=== PATIENT | female | born 1970 | race Caucasian/White ===

== ENCOUNTER 2017-12-04 09:30 | Outpatient (RCR) | payer OTHER, SELFPAY ==
--- NOTE | 2017-11-24 09:49 | HMH.PTOPEV ---
PT Outpatient Evaluation Rehab PT Outpatient Evaluation Start: 11/24/17 08:35 Freq: Status: Active Protocol: Document 11/24/17 08:35 RADHA (Rec: 11/24/17 08:55 RADHA [id number]) Electronically Signed By Angel Figueroa, PT 11/24/17 08:35 Outpatient Therapy Subjective History Subjective History Pt reports insidious onset LBP beginning ~2 months ago. Pt reports chronic LBP, with this current episode effecting R and L sides with radicular s/s into B LE's. Pt reports recent xray of lumbar spine was negative. Chief Complaint Pain Stiff Symptom Type Ache Sharp Dull Symptoms Relieved By Rest/Positioning Heat Symptoms Aggravated By Physical Activity Twisting Lifting Prior Functional Limitations Lifting Housework Current Functional Limitations Lifting Housework Symptom Description Constant but Variable Level of pain today (0-10) 8 Pain scale - at its best (0-10) 8 Pain scale - at its worst (0-10) 10 Lumbopelvic Eval Posture Thoracic Spine Posture Standing Position Neutral Lumbar Spine Posture Standing Position Neutral Assistive device Assistive Devices None / NA Gait Observation General Gait Pattern Observation Antalgic Gait Palapation tenderness bilateral lumbar spinal tenderness Yes: 3/4 paraspinal tenderness Yes: 3/4 buttock tenderness Yes: 3/4 Lumbar/Sacral Palpation Findings Tenderness Lumbar/Sacral Palpation Overall Comment 3/4 Accessory Movement T-spine Vertebrae Accessory Movements Central P/A [place] that Elicit Symptoms T10 bilateral T11 bilateral T12 bilateral L-spine Vertebrae Accessory Movements Central P/A [place] that Elicit Symptoms L2 bilateral L3 bilateral L4 bilateral L5 bilateral S1 bilateral Range of Motion Lumbar Spine Active Flexion Range of 0-40 Motion (degrees) Lumbar Spine Active Extension Range of 0-20 Motion (degrees) Left Lumbar Spine Lateral Flexion Active 0-20 Range of Motion (degrees) Right Lumbar Spine Lateral Flexion 0-20 Active Range of Motion (degrees)
== END 2017-12-04 09:31 | disposition home or self-care (01) ==
LOC: PT 09:30
PROVIDERS: Family Provider Emergency Medicine; PCP Emergency Medicine; Visit Provider Emergency Medicine
DX: M54.5 Low back pain (principal)
CPT/HCPCS: 97010; 97014; 97035; 97110; 97163; G0283

== ENCOUNTER 2018-05-03 16:56 | Inpatient (IN) ==
[2018-05-03 17:30] LABS: Microscopic, Urine URINE MICROSCOPIC (MICROSCOPIC)
[2018-05-03 17:31] LABS: Basophils % 0.3 % (0.1-2.0); Eosinophils # 0.1 K/mm3 (0.0-0.4); Eosinophils % 1.3 % (0.1-12.0); Hematocrit 34.7 % (37.0-47.0); Lymphocytes # 0.7 K/mm3 (0.7-4.5); Lymphocytes % 11.3 % (10-50); Mean Corpuscular HGB Conc 31.8 g/dL (31.8-35.4); Mean Corpuscular Hemoglobin 31.9 pg (27.0-31.2); Mean Corpuscular Volume 100.4 fl (81-99); Mean Platelet Volume 6.6 fl (7.4-10.4); Monocytes % 14.7 % (1.7-9.3); Neutrophils # 4.7 K/mm3 (1.8-7.8); Neutrophils % 72.5 % (37.0-80.0); Platelet Count 407 K/mm3 (142-424); Red Blood Count 3.46 M/mm3 (4.20-5.40); Red Cell Distribution Width 13.9 % (11.5-17.5); White Blood Count 6.5 K/mm3 (4.8-10.8)
[2018-05-03 17:33] LABS: Appearance,Urine CLEAR (Clear); Bilirubin,Urine Negative (Negative); Blood, Urine TRACE-L (Negative); Color,Urine YELLOW (Yellow); Glucose,Urine (UA) Negative (Negative); Ketones,Urine Negative (Negative); Leukocyte Esterase,Urine Negative (Negative); PH,Urine 6.5 (5.0-8.5); Protein,Urine Negative (Negative); Specific Gravity, Urine <= 1.005 (1.005-1.030); Urobilinogen,Urine 0.2 EU/dl (0.2)
[2018-05-03 17:38] LABS: Albumin Level 1.7 gm/dL (3.4-5.0); Albumin/Globulin Ratio 0.4 (1.1-1.8); Anion Gap 14.4 mEq/L (5-15); Bilirubin,Total 0.3 mg/dL (0.2-1.0); Calcium 7.5 mg/dL (8.5-10.1); Potassium 3.4 mmoL/L (3.5-5.1); Total Protein,Serum 5.7 gm/dL (6.4-8.2); Valproic Acid, (Depakene) 87.4 ug/mL (50-100)
[2018-05-03 17:41] LABS: Bacteria,Urine Trace /lpf; Squamous Epithelial Cell,Urine Occasional #/hpf (0-5); WBC,Urine Occasional #/hpf (0-3)
--- NOTE | 2018-05-03 18:52 | Emergency Department Note ---
ED Disposition Clinical Impression: Colitis, Obesity (BMI 30-39.9), Renal insufficiency Schizophrenia Qualifiers: Schizophrenia type: unspecified Qualified Code(s): F20.9 - Schizophrenia, unspecified Hyperlipidemia Qualifiers: Hyperlipidemia type: unspecified Qualified Code(s): E78.5 - Hyperlipidemia, unspecified Anemia Qualifiers: Anemia type: unspecified type Qualified Code(s): D64.9 - Anemia, unspecified Disposition: Admitted as Observation Condition on Discharge: Good Instructions: DI for Acute Abdomen Referrals: Provider,Referral, [Primary Care Provider] - - Critical Care Critical Care Time: No Attestation: On 05/03/18, the high probability of a clinically significant, sudden or life threatening deterioration of the following system(s) required my full and direct attention, intervention and personal management. The time I documented below is in addition to time spent performing reported procedures but includes the following listed in this critical care notation. Medical Decision Making - Medical Records Medical records reviewed: Yes: I reviewed the patient's medical records. - Edgar Inquiry Pt receiving controlled substance: No Vital Signs: 05/03/18 16:57 05/03/18 17:23 05/03/18 18:42 Temperature 100 F H Temperature Source Oral Pulse Rate [Left Radial] 83 89 88 Respiratory Rate 18 16 Blood Pressure [Right Radial Artery] 132/78 133/80 132/78 Blood Pressure Mean [Right Radial Artery] 96 97 96 Blood Pressure Source [Right Radial Artery] Automatic Cuff Automatic Cuff Automatic Cuff Blood Pressure Position [Right Radial Artery] Sitting Sitting Sitting 02 Sat by Pulse Oximetry 97 93 L 98 Oxygen Delivery Method Room Air Room Air - Lab Data Lab results reviewed: Yes: I reviewed the patient's lab results. Lab Results 05/03/18 17:16: WBC 6.5, RBC 3.46 L, Hgb 11.0 L, Hct 34.7 L, MCV 100.4 H, MCH 31.9 H, MCHC 31.8, RDW 13.9, Plt Count 407, MPV 6.6 L, Neut % (Auto) 72.5, Lymph % (Auto) 11.3, [place] % (Auto) 14.7 H, Eos % (Auto) 1.3, Baso % (Auto) 0.3, Neut # (Auto) 4.7, Lymph # (Auto) 0.7, [place] # (Auto) 1.0, Eos # (Auto) 0.1, Baso # (Auto) 0.0 05/03/18 17:16: Sodium 139, Potassium 3.4 L, Chloride 102, Carbon Dioxide 26, Anion Gap 14.4, BUN 10, Creatinine 1.39 H, Estimated Creat Clear 78, Estimated GFR 40 L, Est GFR ( Amer) 49 L, Glucose 155 H, Calcium 7.5 L, Total Bilirubin 0.3, AST 15, ALT 21, Alkaline Phosphatase 146 H, Total Protein 5.7 L, Albumin 1.7 L, Globulin 4.0 H, Albumin/Globulin Ratio 0.4 L, Amylase 9 L, Total Valproic Acid 87.4 05/03/18 17:16: Lipase 37 L 05/03/18 17:16: ESR 17 05/03/18 17:16: C-Reactive Protein 21.2 H 05/03/18 17:25: Urine Color Yellow, Urine Appearance Clear, Urine pH 6.5, Ur Specific [place] <= 1.005, Urine Protein Negative, Urine Glucose (UA) Negative, Urine Ketones Negative, Urine Blood Trace-l, Urine Nitrate Negative, Urine Bilirubin Negative, Urine Urobilinogen 0.2, Ur Leukocyte Esterase Negative, Urine WBC Occasional, Ur Squamous Epith Cells Occasional, Urine Bacteria Trace Result diagrams: 05/03/18 17:16 05/03/18 17:16 Orders (Tests/Meds): ED MEDICATIONS Generic Name Dose Route Start Last Admin Trade Name Freq PRN Reason Stop Dose Admin Sodium Chloride 10 ml 05/03/18 17:18 Saline Flush 10ml Syringe IV 06/02/18 17:17 NEEDED PRN Maintain IV Site Discontinued Medications Generic Name Dose Route Start Last Admin Trade Name Freq PRN Reason Stop Dose Admin Sodium Chloride 10 ml 05/03/18 17:49 05/03/18 17:50 Rad-Saline Flush 10ml Syringe IV 05/03/18 17:50 10 ml ONCE ONE Administration ORDERS Category Date Time Status CT abdomen pelvis w con Stat Cat Scan 05/03/18 17:04 Taken CXR 2 view (NOT portable) [XR chest 2V] Stat Exams 05/03/18 18:51 Taken Urinalysis and Microscopic Stat Lab 05/03/18 17:25 Ordered - Radiology Data #1 Image(s): Chest Image Reviewed: Yes I reviewed the patient's radiology image Preliminary Findings: Normal/NAD - CT Data CT Scan: Abdomen, Pelvis Time Received: 20:[address] Reviewed: Yes: I have viewed the radiologist's interpretation Preliminary Findings: Abnormal (see report) Nausea/Vomiting/Diarrhea HPI - General Chief complaint: Abdominal Pain Stated complaint: abd pain Time Seen by Provider: 05/03/18 18:50 Mode of Arrival: EMS Source of Information: Patient, EMS, Medical Record Limitations: No Limitations Description of Symptoms (Recalled from ER Triage Doc. by RN): to ed per squad with c/o lower abd pain x 1 week. +nausea, +vomiting, denies diarrhea. cpta none - History of Present Illness HPI Narrative: progressive abd pain with dec po intake over the last few days - MD complaint: nausea, vomiting, abdominal pain Onset (ago): day(s) Associated Abdominal Pain: Yes Location of pain: diffuse Severity: moderate Associated symptoms: denies other symptoms - Related Data Home Medications Medication Instructions Recorded Confirmed Atorvastatin Calcium [Atorvastatin 10 mg PO HS 05/03/18 05/03/18 10mg Tab] Benztropine Mesylate 0.5 mg PO BID 05/03/18 05/03/18 Divalproex Sodium [Depakote] 500 mg PO BID 05/03/18 05/03/18 Famotidine [Pepcid 20mg Tablet] 20 mg PO DAILY 05/03/18 05/03/18 Fluoxetine HCl 40 mg PO DAILY 05/03/18 05/03/18 Gabapentin 600 mg PO TID 05/03/18 05/03/18 Hydrocodone/Acetaminophen 1 each PO Q4HP PRN 05/03/18 05/03/18 [Hydrocodon-Acetaminoph 7.5-325] Ibuprofen [Ibuprofen 600mg 600 mg PO NEEDED PRN 05/03/18 05/03/18 Tablet] LORazepam [Ativan 0.5mg 0.5 mg PO NEEDED PRN 05/03/18 05/03/18 tablet] Mag Hydrox/Aluminum Hyd/Simeth 200 ml PO TID 05/03/18 05/03/18 [Wendi-Lanta Liquid] Metoprolol Tartrate [Lopressor 25 mg PO BID 05/03/18 05/03/18 25mg tablet] Perphenazine 8 mg PO BID 05/03/18 05/03/18 risperiDONE [Risperdal 1mg Tablet] 1 mg PO BID 05/03/18 05/03/18 Allergies Allergy/AdvReac Type Severity Reaction Status Date / Time aspirin [ASPIRIN] Allergy Mild Verified 05/03/18 18:20 [facility] History - Hepatitis A Screen Drug use history?: No High risk sexual behaviors?: No History of sexually transmitted infection?: No Currently employed?: No Childcare worker?: No Do you have indoor plumbing?: Yes Do you have electricity?: Yes Attestation statement:: This patient has been screened for Hepatitis A risk factors. I have reviewed the patient's past medical history: Yes Medical History: Denies:: Internal Pacemaker Other Surgeries: No: Pacemaker - Social History Smoking Status: Current every day smoker # Packs/Day (cigarettes): 1 Alcohol Intake: never Occupational Status: disabled - Psychiatric History Expresses thoughts of harming self/others: None Suicide Plan Description: No Plan ROS Obtained: Yes All systems reviewed & no additional complaints - Constitutional Constitutional: Denies fever(s), Reports frequent falls - Eyes Eyes: Denies change in vision ( ) - ENT Ears, Nose, Mouth, and Throat: Denies sore throat - Cardiovascular Cardiovascular: Denies chest pain - Respiratory Respiratory: No cough - Gastrointestinal Gastrointestingal: Reports: as per HPI, abdominal pain, nausea, vomiting. Denies: bright red blood in stools - Genitourinary Female Genitourinary: Denies dysuria, Denies hematuria - Musculoskeletal Musculoskeletal: Denies limited range of motion - Integumentary/Breasts Skin/Breast: Denies rash - Neurologic Neurologic: Denies seizure-like activity Physical Exam - General General appearance: alert, obese - Head Head exam: normocephalic - Eye Eye exam: Present: PERRL, EOMI - ENT ENT exam: Present: mucous membranes dry - Neck Neck exam: Present: trachea midline - Respiratory Respiratory exam: Present: normal lung sounds bilaterally - Cardiovascular Cardiovascular exam: Present: regular rate, systolic murmur - Abdominal Exam Abdominal exam: Present: soft, tenderness Abdominal tenderness: Present: diffuse, moderate - Extremities Exam Extremities exam: Present: full ROM - Neurological Exam Neurological exam: Present: alert, CN II-XII intact - Psychiatric Psychiatric exam: Present: normal affect - Skin Skin exam: Absent: rash
--- NOTE | 2018-05-03 20:47 | Pharmacy Consult Notes ---
[facility] Pharmacy VTE Monitoring - Patient Demographics Admission date: 05/03/18 Report Date: 05/03/18 Time: 20:47 Allergies/Adverse Reactions: Patient Allergies aspirin [ASPIRIN] Allergy (Mild, Verified 05/03/18 18:20) Height: 1.65 m Weight: 99.79 kg Patient Problems: Current Active Problems Colitis (Acute) Obesity (BMI 30-39.9) (Acute) Schizophrenia (Acute) Hyperlipidemia (Acute) Anemia (Acute) Renal insufficiency (Acute) - VTE Risk Labs: VTE Related Lab Results Hgb 11.0 g/dL (12.2-16.2) L 05/03/18 17:16 Hct 34.7 % (37.0-47.0) L 05/03/18 17:16 Plt Count 407 K/mm3 (142-424) 05/03/18 17:16 BUN 10 mg/dL (7-18) 05/03/18 17:16 Creatinine 1.39 mg/dL (0.55-1.02) H 05/03/18 17:16 Estimated Creat Clear 78 mL/min (50-200) 05/03/18 17:16 Clinical Trial Participant: No - Prophylaxis VTE Prophylaxis Ordered?: Yes Types of VTE Prophylaxis: TEDS Knee High
[2018-05-04 06:12] LABS: Basophils % 0.1 % (0.1-2.0); Eosinophils % 0.3 % (0.1-12.0); Hematocrit 35.2 % (37.0-47.0); Hemoglobin 11.1 g/dL (12.2-16.2); Lymphocytes # 0.6 K/mm3 (0.7-4.5); Mean Corpuscular HGB Conc 31.7 g/dL (31.8-35.4); Mean Corpuscular Volume 100.9 fl (81-99); Mean Platelet Volume 6.7 fl (7.4-10.4); Monocytes # 0.3 K/mm3 (0.1-1.0); Monocytes % 5.6 % (1.7-9.3); Neutrophils # 5.2 K/mm3 (1.8-7.8); Platelet Count 395 K/mm3 (142-424); Red Blood Count 3.48 M/mm3 (4.20-5.40); Red Cell Distribution Width 13.7 % (11.5-17.5); White Blood Count 6.2 K/mm3 (4.8-10.8)
[2018-05-04 06:29] LABS: Anion Gap 11.8 mEq/L (5-15); Calcium 7.5 mg/dL (8.5-10.1); Potassium 3.8 mmoL/L (3.5-5.1)
[2018-05-04 07:35] LABS: Lymphocytes % 7 % (10-50); Monocytes % 6 % (2-9); Neutrophils % 87 % (42-76); Total Cells Counted 100
--- NOTE | 2018-05-04 09:05 | History & Physical Report ---
*Admission Date: 05/03/18 *Chief complaint: abd pain *History of present illness: 47-year-old female presents to the ED with complaints of nausea, vomiting and diarrhea times 1 week. Patient reports a history of smoking. Patient admitted for IV fluids. Chest x-ray abnormal repeat with CT of, with contrast. Today patient states she feels better asking for something to eat or drink. [facility] History I have reviewed the patient's past medical history: Yes Medical History: Denies:: Cancer, Diabetes Mellitus Type 1, Diabetes Mellitus Type 2, Internal Pacemaker, MRSA Have you ever received a pneumonia vaccine?: No (STATES UNSURE) Have you received a flu vaccine this season?: Yes Other Surgeries: Yes: Hysterectomy-Total. No: Pacemaker Amputation: No Fractures: No - *Social History Educational Level: Attended High School Smoking Status: Current every day smoker Tobacco Type: cigarettes # Packs/Day (cigarettes): 1 Alcohol Intake: never Occupational Status: disabled Housing: assisted living facility Travel in the last 8 weeks: None - Psychiatric History Expresses thoughts of harming self/others: None Suicide Plan Description: No Plan Family Hx:: Unable to obtain Review of Systems - Review of Systems Review of systems:: pertinent systems reviewed and negative unless documented below - Constitutional Denies body ache(s), Denies fever(s) - Eyes Denies blurry vision - ENT Denies bleeding gums - *Cardiovascular Denies chest pain with activity - *Respiratory Denies chest congestion - *Gastrointestinal Reports loose stools, Reports nausea, Reports vomiting - *Genitourinary Denies urinary urgency - *Musculoskeletal Denies neck pain - Integumentary/Breasts Denies rash - *Neurologic Reports frequent falls, Denies seizure-like activity - Psychiatric Denies lack of enjoyment - Endocrine Denies flushing - Hematologic/Lymphatic Denies enlarged lymph nodes - Allergic/Immunologic Denies lip swelling Meds Home Medications Medication Instructions Recorded Confirmed Type Atorvastatin Calcium [Atorvastatin 10 mg PO HS 05/03/18 05/03/18 History 10mg Tab] Benztropine Mesylate 0.5 mg PO BID 05/03/18 05/03/18 History Divalproex Sodium [Depakote] 500 mg PO BID 05/03/18 05/03/18 History Famotidine [Pepcid 20mg Tablet] 20 mg PO BID 05/03/18 05/04/18 History Fluoxetine HCl 40 mg PO DAILY 05/03/18 05/03/18 History Gabapentin 600 mg PO TID 05/03/18 05/03/18 History Hydrocodone/Acetaminophen 1 each PO Q4HP PRN 05/03/18 05/03/18 History [Hydrocodon-Acetaminoph 7.5-325] Ibuprofen [Ibuprofen 600mg 600 mg PO NEEDED PRN 05/03/18 05/03/18 History Tablet] LORazepam [Ativan 0.5mg 0.5 mg PO NEEDED PRN 05/03/18 05/03/18 History tablet] Mag Hydrox/Aluminum Hyd/Simeth 200 ml PO TID 05/03/18 05/03/18 History [Wendi-Lanta Liquid] Metoprolol Tartrate [Lopressor 25 mg PO BID 05/03/18 05/03/18 History 25mg tablet] Perphenazine 8 mg PO BID 05/03/18 05/03/18 History risperiDONE [Risperdal 1mg Tablet] 1 mg PO BID 05/03/18 05/03/18 History Allergies Allergy/AdvReac Type Severity Reaction Status Date / Time aspirin [ASPIRIN] Allergy Mild Verified 05/03/18 18:20 Exam Vital signs and Labs for Last 24 Hours: Temp Pulse Resp BP Pulse Ox 97.4 F L 68 18 129/89 93 L 05/04/18 04:00 05/04/18 04:00 05/04/18 04:00 05/04/18 04:00 05/04/18 08:32 Laboratory Results - last 24 hr 05/03/18 17:16: WBC 6.5, RBC 3.46 L, Hgb 11.0 L, Hct 34.7 L, MCV 100.4 H, MCH 31.9 H, MCHC 31.8, RDW 13.9, Plt Count 407, MPV 6.6 L, Neut % (Auto) 72.5, Lymph % (Auto) 11.3, [place] % (Auto) 14.7 H, Eos % (Auto) 1.3, Baso % (Auto) 0.3, Neut # (Auto) 4.7, Lymph # (Auto) 0.7, [place] # (Auto) 1.0, Eos # (Auto) 0.1, Baso # (Auto) 0.0 05/03/18 17:16: Sodium 139, Potassium 3.4 L, Chloride 102, Carbon Dioxide 26, Anion Gap 14.4, BUN 10, Creatinine 1.39 H, Estimated Creat Clear 78, Estimated GFR 40 L, Est GFR ( Amer) 49 L, Glucose 155 H, Calcium 7.5 L, Total Bilirubin 0.3, AST 15, ALT 21, Alkaline Phosphatase 146 H, Total Protein 5.7 L, Albumin 1.7 L, Globulin 4.0 H, Albumin/Globulin Ratio 0.4 L, Amylase 9 L, Total Valproic Acid 87.4 05/03/18 17:16: Lipase 37 L 05/03/18 17:16: ESR 17 05/03/18 17:16: C-Reactive Protein 21.2 H 05/03/18 17:25: Urine Color Yellow, Urine Appearance Clear, Urine pH 6.5, Ur Specific [place] <= 1.005, Urine Protein Negative, Urine Glucose (UA) Negative, Urine Ketones Negative, Urine Blood Trace-l, Urine Nitrate Negative, Urine Bilirubin Negative, Urine Urobilinogen 0.2, Ur Leukocyte Esterase Negative, Urine WBC Occasional, Ur Squamous Epith Cells Occasional, Urine Bacteria Trace 05/04/18 05:45: WBC 6.2, RBC 3.48 L, Hgb 11.1 L, Hct 35.2 L, MCV 100.9 H, MCH 32.0 H, MCHC 31.7 L, RDW 13.7, Plt Count 395, MPV 6.7 L, Neut % (Auto) 85.0 H, Lymph % (Auto) 9.0 L, [place] % (Auto) 5.6, Eos % (Auto) 0.3, Baso % (Auto) 0.1, Neut # (Auto) 5.2, Lymph # (Auto) 0.6 L, [place] # (Auto) 0.3, Eos # (Auto) 0.0, Baso # (Auto) 0.0, Total Counted 100, Neutrophils % (Manual) 87 H, Lymphocytes % (Manual) 7 L, Monocytes % (Manual) 6, Platelet Estimate Normal 05/04/18 05:45: Sodium 141, Potassium 3.8, Chloride 106, Carbon Dioxide 27, Anion Gap 11.8, BUN 10, Creatinine 1.20 H, Estimated Creat Clear 80, Estimated GFR 48 L, Est GFR ( Amer) 58 L, Glucose 149 H, Calcium 7.5 L, Magnesium 3.1 H I & O for Last 24 hours: Intake & Output 05/01/18 05/02/18 05/03/18 05/04/18 11:59 11:59 11:59 11:59 Intake Total 250 / 250 Output Total 700 / 700 Balance -450 / -450 Weight 195 lb 5 oz - Constitutional no acute distress - *Routine HEENT Exam Head: Present: normocephalic Eye: Present: EOMI, PERRL ENT: Present: mucous membranes moist - *Routine Neck Exam Present: supple. Absent: lymphadenopathy - *Routine Respiratory Exam Present: CTA bilaterally - *Routine Cardiovascular Exam Present: RRR - *Routine Abdominal Exam Present: soft, normoactive bowel sounds. Absent: tenderness - *Routine Extremities Exam Absent: cyanosis, clubbing, edema - *Routine Skin Exam Present: warm. Absent: rash - *Routine Neurological Exam Present: alert, oriented X3 - Routine Psychiatric Exam Present: normal affect Assessment and Plan - Assessment and plan all Dx Assessment and Plan for all problems:: Rounded with Dr. Nicholas all orders per Yu CTA chest with contrast due to abnormal chest x-ray Possible discharge home in a.m.
[2018-05-05 09:32] LABS: Basophils % 0.3 % (0.1-2.0); Eosinophils % 0.3 % (0.1-12.0); Hematocrit 33.7 % (37.0-47.0); Hemoglobin 10.4 g/dL (12.2-16.2); Lymphocytes # 0.7 K/mm3 (0.7-4.5); Lymphocytes % 5.7 % (10-50); Mean Corpuscular HGB Conc 30.8 g/dL (31.8-35.4); Mean Corpuscular Hemoglobin 31.7 pg (27.0-31.2); Mean Corpuscular Volume 102.9 fl (81-99); Mean Platelet Volume 6.9 fl (7.4-10.4); Monocytes % 8.5 % (1.7-9.3); Neutrophils % 85.3 % (37.0-80.0); Platelet Count 447 K/mm3 (142-424); Red Blood Count 3.27 M/mm3 (4.20-5.40); Red Cell Distribution Width 13.8 % (11.5-17.5); White Blood Count 11.7 K/mm3 (4.8-10.8)
[2018-05-05 09:52] LABS: ABG Base Excess 0.8 mmol/L (-2.4-2.3); ABG HCO3 25.2 mmhg (22.0-26.0); ABG Oxygen Saturation 83 % (90-100); ABG PCO2 39.6 mmhg (35.0-45.0); ABG PH 7.42 mmol/L (7.35-7.45); ABG TCO2 26.4 mmhg (23-27)
[2018-05-05 09:53] LABS: Allen's Test ACCEPTABLE; Oxygen ROOM AIR %
[2018-05-05 09:54] LABS: ABG PO2 49.3 mmhg (80-100)
[2018-05-05 12:27] LABS: Lymphocytes % 5 % (10-50); Macrocytosis 1+; Monocytes % 4 % (2-9); Neutrophils % 91 % (42-76); Total Cells Counted 100
--- NOTE | 2018-05-05 12:27 | Progress Note ---
Internal Medicine - PN: Subj *Date: 05/05/18 *Time: 08:00 Interval history: pt feels sl sob with no cough - reviewed cxr/ct chest - will check abg Exam Vital signs and Labs for Last 24 Hours: Temp Pulse Resp BP Pulse Ox 97.9 F 77 18 104/55 L 90 L 05/05/18 08:00 05/05/18 09:38 05/05/18 08:00 05/05/18 08:00 05/05/18 08:00 Laboratory Results - last 24 hr 05/05/18 09:15: WBC 11.7 H D, RBC 3.27 L, Hgb 10.4 L, Hct 33.7 L, MCV 102.9 H, MCH 31.7 H, MCHC 30.8 L, RDW 13.8, Plt Count 447 H, MPV 6.9 L, Neut % (Auto) 85.3 H, Lymph % (Auto) 5.7 L, [place] % (Auto) 8.5, Eos % (Auto) 0.3, Baso % (Auto) 0.3, Neut # (Auto) 10.0 H, Lymph # (Auto) 0.7, [place] # (Auto) 1.0, Eos # (Auto) 0.0, Baso # (Auto) 0.0 05/05/18 09:15: C-Reactive Protein 8.1 H D 05/05/18 09:26: Specimen Source R radial, O2 % Room air, ABG pH 7.42, ABG pCO2 39.6, ABG pO2 49.3 L, ABG HCO3 25.2, ABG Total CO2 26.4, ABG O2 Saturation 83 L* , ABG Base Excess 0.8, Doni Test Acceptable I & O for Last 24 hours: Intake & Output 05/03/18 05/04/18 05/05/18 05/06/18 11:59 11:59 11:59 11:59 Intake Total 350 / 350 2049 / 2049 Output Total 900 / 900 600 / 600 Balance -550 / -550 1450 / 1450 Weight 195 lb 5 oz 198 lb 6 oz - Constitutional no acute distress, obese - *Routine HEENT Exam Head: Present: normocephalic Eye: Present: EOMI, PERRL ENT: Present: mucous membranes dry - *Routine Neck Exam Present: supple - *Routine Respiratory Exam Present: CTA bilaterally - *Routine Cardiovascular Exam Present: RRR, murmur - *Routine Abdominal Exam Present: soft, tenderness - *Routine Extremities Exam Absent: edema - *Routine Skin Exam Present: intact - *Routine Neurological Exam Present: alert, oriented X3, CN II-XII intact - Routine Psychiatric Exam Present: normal affect Assessment and Plan (1) Hypoxia Current visit: Yes Status: Acute Category: Medical Code(s): R09.02 - Hypoxemia (2) CAP (community acquired pneumonia) Current visit: Yes Status: Acute Category: Medical Code(s): J18.9 - Pneumonia, unspecified organism
[2018-05-05 13:47] LABS: Creatine Kinase 44 U/L (26-192)
[2018-05-06 09:42] LABS: Basophils % 0.2 % (0.1-2.0); Eosinophils % 0.4 % (0.1-12.0); Hematocrit 35.9 % (37.0-47.0); Hemoglobin 11.4 g/dL (12.2-16.2); Lymphocytes # 0.7 K/mm3 (0.7-4.5); Mean Corpuscular HGB Conc 31.9 g/dL (31.8-35.4); Mean Corpuscular Hemoglobin 32.5 pg (27.0-31.2); Mean Corpuscular Volume 101.9 fl (81-99); Mean Platelet Volume 6.7 fl (7.4-10.4); Monocytes # 1.4 K/mm3 (0.1-1.0); Monocytes % 12.2 % (1.7-9.3); Neutrophils # 9.4 K/mm3 (1.8-7.8); Neutrophils % 81.2 % (37.0-80.0); Platelet Count 548 K/mm3 (142-424); Red Blood Count 3.52 M/mm3 (4.20-5.40); Red Cell Distribution Width 14.1 % (11.5-17.5); White Blood Count 11.5 K/mm3 (4.8-10.8)
[2018-05-06 09:55] LABS: Albumin Level 1.8 gm/dL (3.4-5.0); Albumin/Globulin Ratio 0.5 (1.1-1.8); Anion Gap 9.9 mEq/L (5-15); Bilirubin,Total 0.2 mg/dL (0.2-1.0); C-Reactive Protein 5.1 mg/L (0.0-0.9); Calcium 7.7 mg/dL (8.5-10.1); Globulin 3.7 gm/dl (1.3-3.2); Potassium 3.9 mmoL/L (3.5-5.1); Total Protein,Serum 5.5 gm/dL (6.4-8.2)
[2018-05-06 10:34] LABS: Erythrocyte Sedimentation Rate 13 mm/hr (0-20)
--- NOTE | 2018-05-06 16:17 | Cardiology Report ---
PROCEDURE: 2-D M-mode and color Doppler study INDICATIONS FOR THE TEST: Chest pain COPD Heart Murmur+ Tobacco Smoking+ Palpitations Fatigue Syncope Edema Hypertension Diabetes Mellitus Rheumatic Fever SOB DELGADO Obesity Hyperlipidemia Family History HD Additional History PATIENT INFORMATION HEIGHT:63 WEIGHT:198 GENDER: Female B/P:129/89 2-D/M-MODE INTERPRETATION: 2-D MEASUREMENTS OBSERVED VALUES IN CMS Right Ventricular Dimension (RVDd) 1.3 Interventricular Septum (Thickness)(IVsd) 1.1 Left Ventricular Internal Dimensions(LVIDd) 5.0 Left Ventricular Posterior Wall (Thickness)(LVPWd) 0.7 Aortic Root 2.3 Aortic Cusp Separation 1.8 Left Atrial Dimensions (LAD) 3.6 2D 1. Left atrium is qualitatively moderately enlarged, left ventricle is normal size, visually estimated ejection fraction 55% regional wall motion abnormality. 2. The right atrium and right ventricle are normal size and contractility. 3. The aortic valve is minimally thickened and fibrosed. 4. The mitral valve leaflets are not well visualized. 5. The tricuspid valve is grossly normal. 6. The pulmonic valve is poorly visualized. 7. No significant pericardial effusion noted. DOPPLER INTERROGATION: 1. The aortic outflow velocities within normal range, there is no aortic stenosis aortic insufficiency. 2. The mitral inflow velocity within normal range, there is no mitral stenosis, there is moderate to severe mitral regurgitation seen, tissue Doppler is indicative of raised left atrial pressure. Diastolic parameters are inconclusive. 3. Mild tricuspid regurgitation, tricuspid regurgitation jet velocity is inadequate for calculation of the right ventricular systolic pressure. CONCLUSION: 1. Moderately enlarged left atrium, normal left ventricular size, visually estimated ejection fraction 55% with no regional wall motion abnormality, Doppler evidence of raised left atrial pressure. 2. Moderate to severe mitral regurgitation as described above, the mitral valve leaflets are not well visualized, a transesophageal echocardiogram is recommended for the evaluation of the morphology of the mitral valve, and degree of mitral regurgitation. 3. Mild tricuspid regurgitation 4. No significant pericardial effusion noted.
--- NOTE | 2018-05-06 16:43 | Progress Note ---
Internal Medicine - PN: Subj *Date: 05/06/18 *Time: 08:00 Exam Vital signs and Labs for Last 24 Hours: Temp Pulse Resp BP Pulse Ox 97.9 F 78 22 125/59 L 89 L 05/06/18 15:07 05/06/18 15:07 05/06/18 15:07 05/06/18 15:07 05/06/18 15:07 Laboratory Results - last 24 hr 05/06/18 08:40: Stool Occult Blood Negative 05/06/18 09:34: WBC 11.5 H, RBC 3.52 L, Hgb 11.4 L, Hct 35.9 L, MCV 101.9 H, MCH 32.5 H, MCHC 31.9, RDW 14.1, Plt Count 548 H, MPV 6.7 L, Neut % (Auto) 81.2 H, Lymph % (Auto) 6.0 L, [place] % (Auto) 12.2 H, Eos % (Auto) 0.4, Baso % (Auto) 0.2, Neut # (Auto) 9.4 H, Lymph # (Auto) 0.7, [place] # (Auto) 1.4 H, Eos # (Auto) 0.0, Baso # (Auto) 0.0, ESR 13 05/06/18 09:34: Sodium 144, Potassium 3.9, Chloride 110 H, Carbon Dioxide 28, Anion Gap 9.9, BUN 8, Creatinine 1.00, Estimated Creat Clear 98, Estimated GFR 59, Est GFR ( Amer) 72 D, Glucose 145 H, Calcium 7.7 L, Total Bilirubin 0.2, AST 16, ALT 15 D, Alkaline Phosphatase 124 H, C-Reactive Protein 5.1 H D, Total Protein 5.5 L, Albumin 1.8 L, Globulin 3.7 H, Albumin/Globulin Ratio 0.5 L I & O for Last 24 hours: Intake & Output 05/04/18 05/05/18 05/06/18 05/07/18 11:59 11:59 11:59 11:59 Intake Total 350 / 350 2150 / 2150 2047 / 2047 360 / 360 Output Total 900 / 900 600 / 600 3800 / 3800 Balance -550 / -550 1550 / 1550 -1752 / -1752 360 / 360 Weight 195 lb 5 oz 198 lb 6 oz 198 lb 7 oz Microbiology Reports for the Last 24 Hours: Microbiology 05/06/18 07:00 Sputum - Expectorated Sputum Gram Stain - Final - Constitutional mild distress - *Routine HEENT Exam Head: Present: normocephalic Eye: Present: EOMI, PERRL ENT: Present: mucous membranes moist - *Routine Neck Exam Present: supple. Absent: lymphadenopathy - *Routine Respiratory Exam Present: rhonchi, diminished air movement - *Routine Cardiovascular Exam Present: RRR - *Routine Abdominal Exam Present: soft, normoactive bowel sounds, tenderness - *Routine Extremities Exam Absent: cyanosis, clubbing, edema - *Routine Skin Exam Present: warm. Absent: rash - *Routine Neurological Exam Present: alert, oriented X3 Assessment and Plan (1) Hypoxia Current visit: Yes Status: Acute Category: Medical Code(s): R09.02 - Hypoxemia (2) CAP (community acquired pneumonia) Current visit: Yes Status: Acute Category: Medical Code(s): J18.9 - Pneumonia, unspecified organism - Assessment and plan all Dx Assessment and Plan for all problems:: Repeat CT of abdomen with contrast Rounded with Dr. Nicholas all orders per Yu
[2018-05-06 17:13] LABS: ABG Base Excess 5.6 mmol/L (-2.4-2.3); ABG HCO3 30.3 mmhg (22.0-26.0); ABG Oxygen Saturation 79 % (90-100); ABG PCO2 49.7 mmhg (35.0-45.0); ABG TCO2 31.8 mmhg (23-27)
[2018-05-06 17:15] LABS: Oxygen 100 %
[2018-05-06 17:17] LABS: ABG PO2 44.4 mmhg (80-100); Allen's Test Acceptable
[2018-05-06 18:35] LABS: ABG Base Excess 6.9 mmol/L (-2.4-2.3); ABG HCO3 31.3 mmhg (22.0-26.0); ABG Oxygen Saturation 91 % (90-100); ABG PCO2 48.8 mmhg (35.0-45.0); ABG PH 7.43 mmol/L (7.35-7.45); ABG PO2 61.7 mmhg (80-100); ABG TCO2 32.8 mmhg (23-27)
[2018-05-06 18:37] LABS: Oxygen 100 %
[2018-05-06 18:38] LABS: Allen's Test Acceptable
--- NOTE | 2018-05-07 09:15 | Progress Note ---
Internal Medicine - PN: Subj *Date: 05/07/18 *Time: 09:15 Exam Vital signs and Labs for Last 24 Hours: Temp Pulse Resp BP Pulse Ox 98.1 F 64 23 135/65 94 L 05/07/18 08:00 05/07/18 08:00 05/07/18 08:00 05/07/18 08:00 05/07/18 09:01 Laboratory Results - last 24 hr 05/06/18 08:40: Stool Occult Blood Negative 05/06/18 09:34: WBC 11.5 H, RBC 3.52 L, Hgb 11.4 L, Hct 35.9 L, MCV 101.9 H, MCH 32.5 H, MCHC 31.9, RDW 14.1, Plt Count 548 H, MPV 6.7 L, Neut % (Auto) 81.2 H, Lymph % (Auto) 6.0 L, Gray % (Auto) 12.2 H, Eos % (Auto) 0.4, Baso % (Auto) 0.2, Neut # (Auto) 9.4 H, Lymph # (Auto) 0.7, [place] # (Auto) 1.4 H, Eos # (Auto) 0.0, Baso # (Auto) 0.0, ESR 13 05/06/18 09:34: Sodium 144, Potassium 3.9, Chloride 110 H, Carbon Dioxide 28, Anion Gap 9.9, BUN 8, Creatinine 1.00, Estimated Creat Clear 98, Estimated GFR 59, Est GFR ( Amer) 72 D, Glucose 145 H, Calcium 7.7 L, Total Bilirubin 0.2, AST 16, ALT 15 D, Alkaline Phosphatase 124 H, C-Reactive Protein 5.1 H D, Total Protein 5.5 L, Albumin 1.8 L, Globulin 3.7 H, Albumin/Globulin Ratio 0.5 L 05/06/18 17:11: Specimen Source Left radial, O2 % 100, ABG pH 7.40, ABG pCO2 49.7 H, ABG pO2 44.4 L, ABG HCO3 30.3 H, ABG Total CO2 31.8 H, ABG O2 Saturation 79 L*, ABG Base Excess 5.6 H, Doni Test Acceptable 05/06/18 18:30: Specimen Source Right radial, O2 % 100, ABG pH 7.43, ABG pCO2 48.8 H, ABG pO2 61.7 L, ABG HCO3 31.3 H, ABG Total CO2 32.8 H, ABG O2 Saturation 91, ABG Base Excess 6.9 H, Doni Test Acceptable, Vent Rate 16, Tidal Volume Bipap 16/8 05/06/18 22:03: POC Glucose 127 H 05/07/18 07:06: POC Glucose 111 H I & O for Last 24 hours: Intake & Output 05/04/18 05/05/18 05/06/18 05/07/18 23:59 23:59 23:59 23:59 Intake Total 1450 / 1450 2240 / 2240 1908 / 1908 500 / 500 Output Total 1300 / 1300 2200 / 2200 4650 / 4650 600 / 600 Balance 150 / 150 40 / 40 -2742 / -2742 -100 / -100 Weight 89.981 kg 90.01 kg 89.811 kg Microbiology Reports for the Last 24 Hours: Microbiology 05/06/18 07:00 Sputum - Expectorated Sputum Gram Stain - Final 05/06/18 07:00 Sputum - Expectorated Sputum Sputum Culture - Preliminary Assessment and Plan (1) Hypoxia Current visit: Yes Status: Acute Category: Medical Code(s): R09.02 - Hypoxemia (2) CAP (community acquired pneumonia) Current visit: Yes Status: Acute Category: Medical Code(s): J18.9 - Pneumonia, unspecified organism The patient's infection will respond to the chosen ABx?: Yes Is the patient receiving the right drug, dose, and route?: Yes Could a more targeted ABx be ordered?: No (CULTURES PENDING AT THIS TIME)
[2018-05-07 09:23] LABS: Basophils % 0.3 % (0.1-2.0); Eosinophils # 0.1 K/mm3 (0.0-0.4); Eosinophils % 0.7 % (0.1-12.0); Hematocrit 37.7 % (37.0-47.0); Hemoglobin 11.7 g/dL (12.2-16.2); Lymphocytes # 0.7 K/mm3 (0.7-4.5); Lymphocytes % 7.4 % (10-50); Mean Corpuscular HGB Conc 31.1 g/dL (31.8-35.4); Mean Corpuscular Hemoglobin 31.6 pg (27.0-31.2); Mean Corpuscular Volume 101.7 fl (81-99); Mean Platelet Volume 6.5 fl (7.4-10.4); Monocytes % 11.8 % (1.7-9.3); Neutrophils % 79.7 % (37.0-80.0); Platelet Count 549 K/mm3 (142-424); Red Cell Distribution Width 14.2 % (11.5-17.5); White Blood Count 8.7 K/mm3 (4.8-10.8)
[2018-05-07 09:39] LABS: Albumin Level 1.9 gm/dL (3.4-5.0); Anion Gap 11.1 mEq/L (5-15); Bilirubin,Direct 0.1 mg/dL (0.0-0.2); Bilirubin,Indirect 0.2 mg/dL (0.0-0.9); Bilirubin,Total 0.3 mg/dL (0.2-1.0); Calcium 8.3 mg/dL (8.5-10.1); Potassium 4.1 mmoL/L (3.5-5.1); Total Protein,Serum 5.9 gm/dL (6.4-8.2)
[2018-05-07 10:22] LABS: ABG Base Excess 6.3 mmol/L (-2.4-2.3); ABG HCO3 29.6 mmhg (22.0-26.0); ABG Oxygen Saturation 99 % (90-100); ABG PCO2 39.8 mmhg (35.0-45.0); ABG PH 7.49 mmol/L (7.35-7.45); ABG PO2 165.5 mmhg (80-100); ABG TCO2 30.9 mmhg (23-27)
[2018-05-07 10:25] LABS: Oxygen 100 %; Tidal Volume 18/8
[2018-05-07 10:26] LABS: Allen's Test ACCEPTABLE
[2018-05-07 11:20] LABS: ABG Base Excess 7.7 mmol/L (-2.4-2.3); ABG HCO3 31.2 mmhg (22.0-26.0); ABG Oxygen Saturation 59 % (90-100); ABG PH 7.48 mmol/L (7.35-7.45); ABG TCO2 32.6 mmhg (23-27)
[2018-05-07 11:22] LABS: Oxygen 40 %
[2018-05-07 11:23] LABS: ABG PO2 29.8 mmhg (80-100); Allen's Test ACCEPTABLE
--- NOTE | 2018-05-07 12:34 | Pharmacy Consult Notes ---
- Pharmacy Consult Date: 05/07/18 Time: 12:33 Referring provider: DR. GUERRA Reason for Consult:: VANCOMYCIN DOSING Allergies and ADEs:: Allergies Allergy/AdvReac Type Severity Reaction Status Date / Time aspirin [ASPIRIN] Allergy Mild Verified 05/03/18 18:20 Home Medications:: Home Medications Medication Instructions Recorded Confirmed Type Atorvastatin Calcium [Atorvastatin 10 mg PO HS 05/03/18 05/03/18 History 10mg Tab] Benztropine Mesylate 0.5 mg PO BID 05/03/18 05/03/18 History Famotidine [Pepcid 20mg Tablet] 20 mg PO BID 05/03/18 05/04/18 History Fluoxetine HCl 40 mg PO DAILY 05/03/18 05/03/18 History Gabapentin 600 mg PO TID 05/03/18 05/03/18 History Hydrocodone/Acetaminophen 1 each PO Q4HP PRN 05/03/18 05/03/18 History [Hydrocodon-Acetaminoph 7.5-325] Ibuprofen [Ibuprofen 600mg 600 mg PO NEEDED PRN 05/03/18 05/03/18 History Tablet] LORazepam [Ativan 0.5mg 0.5 mg PO NEEDED PRN 05/03/18 05/03/18 History tablet] Mag Hydrox/Aluminum Hyd/Simeth 200 ml PO TID 05/03/18 05/03/18 History [Wendi-Lanta Liquid] Metoprolol Tartrate [Lopressor 25 mg PO BID 05/03/18 05/03/18 History 25mg tablet] Perphenazine 8 mg PO BID 05/03/18 05/03/18 History risperiDONE [Risperdal 1mg Tablet] 1 mg PO BID 05/03/18 05/03/18 History Divalproex Sodium 500 mg PO BID 05/04/18 05/04/18 History Height: 1.6 m Weight: 89.811 kg Laboratory Results:: Laboratory Results - last 24 hr 05/06/18 17:11: Specimen Source Left radial, O2 % 100, ABG pH 7.40, ABG pCO2 49.7 H, ABG pO2 44.4 L, ABG HCO3 30.3 H, ABG Total CO2 31.8 H, ABG O2 Saturation 79 L*, ABG Base Excess 5.6 H, Doni Test Acceptable 05/06/18 18:30: Specimen Source Right radial, O2 % 100, ABG pH 7.43, ABG pCO2 48.8 H, ABG pO2 61.7 L, ABG HCO3 31.3 H, ABG Total CO2 32.8 H, ABG O2 Saturation 91, ABG Base Excess 6.9 H, Doni Test Acceptable, Vent Rate 16, Tidal Volume Bipap 16/8 05/06/18 22:03: POC Glucose 127 H 05/07/18 07:06: POC Glucose 111 H 05/07/18 08:45: Specimen Source L radial, O2 % 100, ABG pH 7.49 H, ABG pCO2 39.8, ABG pO2 165.5 H, ABG HCO3 29.6 H, ABG Total CO2 30.9 H, ABG O2 Saturation 99, ABG Base Excess 6.3 H, Doni Test Acceptable, Tidal Volume 18/8 05/07/18 09:16: WBC 8.7, RBC 3.70 L, Hgb 11.7 L, Hct 37.7, MCV 101.7 H, MCH 31.6 H, MCHC 31.1 L, RDW 14.2, Plt Count 549 H, MPV 6.5 L, Neut % (Auto) 79.7, Lymph % (Auto) 7.4 L, [place] % (Auto) 11.8 H, Eos % (Auto) 0.7, Baso % (Auto) 0.3, Neut # (Auto) 7.0, Lymph # (Auto) 0.7, [place] # (Auto) 1.0, Eos # (Auto) 0.1, Baso # (Auto) 0.0 05/07/18 09:16: Sodium 146 H, Potassium 4.1, Chloride 107, Carbon Dioxide 32, Anion Gap 11.1, BUN 16 D, Creatinine 0.83, Estimated Creat Clear 118, Estimated GFR 73, Est GFR ( Amer) 89 D, Glucose 123 H, Calcium 8.3 L, Total Bilirubin 0.3, Direct Bilirubin 0.1, Indirect Bilirubin 0.2, AST 17, ALT 15, Alkaline Phosphatase 125 H, Total Protein 5.9 L, Albumin 1.9 L 05/07/18 11:17: Specimen Source R radial, O2 % 40, ABG pH 7.48 H, ABG pCO2 43.0, ABG pO2 29.8 L, ABG HCO3 31.2 H, ABG Total CO2 32.6 H, ABG O2 Saturation 59 L*, ABG Base Excess 7.7 H, Doni Test Acceptable Medical History: Denies:: Cancer, Diabetes Mellitus Type 1, Diabetes Mellitus Type 2, Internal Pacemaker, MRSA Assessment and Plan (1) Hypoxia Current visit: Yes Status: Acute Category: Medical Code(s): R09.02 - Hypoxemia (2) CAP (community acquired pneumonia) Current visit: Yes Status: Acute Category: Medical Code(s): J18.9 - Pneumonia, unspecified organism - Assessment and plan all Dx Assessment and Plan for all problems:: BASED ON PATIENT FACTORS, RECOMMEND INITIATING VANCOMYCIN AT 1,750MG IV EVERY 18H. PHARMACY WILL MONITOR AND ADJUST DOSE APPROPRIATE. -SERENITY SORIA, ORTIZD
--- NOTE | 2018-05-07 12:59 | Discharge Summary ---
General - General Admission date:: 05/03/18 Discharge date: 05/07/18 HPI HPI: 47-year-old female presents to the ED with complaints of nausea, vomiting and diarrhea times 1 week. Patient reports a history of smoking. Patient admitted for IV fluids. Chest x-ray abnormal repeat with CT of, with contrast. Today patient states she feels better asking for something to eat or drink. Hospital Course Hospital Course: chest x ray 05/07-IMPRESSION: Increase in bilateral airspace disease/pneumonia chest x ray 05/03-IMPRESSION: Bilateral pneumonia. On the CT scan pneumonia somewhat atypical appearance having a rounded contour in the superior segment of the right lower lobe and superior segment left lower lobe. Consider chest CT with contrast to exclude the possibility of necrotizing pneumonia or septic emboli ct abd/pelvis 05/06-IMPRESSION: 1. Progression of bilateral lower lobe airspace disease consistent with worsening bilateral pneumonia with trace effusions. 2. Persistent but improving stranding of the mesenteric fat with improvement also noted in the diffuse thickening of the colon and small bowel suggesting improvement in enterocolitis. ct abd/pelvis 05/03-IMPRESSION: 1. FINDINGS consistent with enterocolitis 2. Ascites with diffuse stranding of the mesenteric fat which could be due to the ascites or could be inflammatory or infectious in nature.. 3. Mild bilateral hydronephrosis and hydroureter etiology indeterminate 4. Bilateral lower lobe airspace disease echo:CONCLUSION: 1. Moderately enlarged left atrium, normal left ventricular size, visually estimated ejection fraction 55% with no regional wall motion abnormality, Doppler evidence of raised left atrial pressure. 2. Moderate to severe mitral regurgitation as described above, the mitral valve leaflets are not well visualized, a transesophageal echocardiogram is recommended for the evaluation of the morphology of the mitral valve, and degree of mitral regurgitation. 3. Mild tricuspid regurgitation 4. No significant pericardial effusion noted. ct chest:05/04-------IMPRESSION: ------- 1. Bilateral airspace disease/bilateral pneumonic infiltrates. (Much more evident on CT than plain film) ... Infiltrates most evident centrally bilaterally.With infiltrate extending to upper lobes more so than lower lobe,- on Right more so than than left. .... Scattered smaller areas of patchy infiltrate seen about the periphery upper & lower lobes bilateral as well. .. No areas of cavitation. No significant pleural effusion 2. No significant mediastinal nor hilar adenopathy nor mass.- Only Scattered modest reactive nodes A few most likely reactive nodes at anterior fat pad overlying the right atria & just above anterior liver otherwise noted. .3. Images included uppermost abdomen, & again demonstrate stranding throughout the mesentery, omental fat and peripancreatic fat as described on yesterday's CT abdomen. 4. Probable 12 mm nodule lower pole left lobe thyroid discussed with Dr Montalvo he recommends to transfer to today if no bed try somewhere else. talked with Dr Zhao at accepted pt to ICU recommends vanc,zoysn, and azithromax and intubate to help with airway. will transfer when bed is available Objective Vital signs: Temp Pulse Resp BP Pulse Ox 98.1 F 64 23 135/65 94 L 05/07/18 08:00 05/07/18 08:00 05/07/18 08:00 05/07/18 08:00 05/07/18 09:01 mild distress - *Routine HEENT Exam Head: Present: normocephalic Eye: Present: PERRL ENT: Present: mucous membranes moist - *Routine Respiratory Exam Present: rhonchi, diminished air movement - *Routine Cardiovascular Exam Present: RRR - *Routine Abdominal Exam Present: soft, normoactive bowel sounds - *Routine Extremities Exam Present: full ROM - *Routine Skin Exam Present: intact - *Routine Neurological Exam Present: alert, oriented X3 - Routine Psychiatric Exam Present: normal affect Results Labs on day of discharge: Labs from last 24 hours 05/07/18 05/07/18 05/07/18 11:17 09:16 09:16 WBC 8.7 RBC 3.70 L Hgb 11.7 L Hct 37.7 MCV 101.7 H MCH 31.6 H MCHC 31.1 L RDW 14.2 Plt Count 549 H MPV 6.5 L Neut % (Auto) 79.7 Lymph % (Auto) 7.4 L [place] % (Auto) 11.8 H Eos % (Auto) 0.7 Baso % (Auto) 0.3 Neut # (Auto) 7.0 Lymph # (Auto) 0.7 [place] # (Auto) 1.0 Eos # (Auto) 0.1 Baso # (Auto) 0.0 Specimen Source R radial O2 % 40 ABG pH 7.48 H ABG pCO2 43.0 ABG pO2 29.8 L ABG HCO3 31.2 H ABG Total CO2 32.6 H ABG O2 Saturation 59 L* ABG Base Excess 7.7 H Doni Test Acceptable Vent Rate Tidal Volume Sodium 146 H Potassium 4.1 Chloride 107 Carbon Dioxide 32 Anion Gap 11.1 BUN 16 D Creatinine 0.83 Estimated Creat Clear 118 Estimated GFR 73 Est GFR ( Amer) 89 D Glucose 123 H POC Glucose Calcium 8.3 L Total Bilirubin 0.3 Direct Bilirubin 0.1 Indirect Bilirubin 0.2 AST 17 ALT 15 Alkaline Phosphatase 125 H Total Protein 5.9 L Albumin 1.9 L 05/07/18 05/07/18 05/06/18 08:45 07:06 22:03 WBC RBC Hgb Hct MCV MCH MCHC RDW Plt Count MPV Neut % (Auto) Lymph % (Auto) [place] % (Auto) Eos % (Auto) Baso % (Auto) Neut # (Auto) Lymph # (Auto) [place] # (Auto) Eos # (Auto) Baso # (Auto) Specimen Source L radial O2 % 100 ABG pH 7.49 H ABG pCO2 39.8 ABG pO2 165.5 H ABG HCO3 29.6 H ABG Total CO2 30.9 H ABG O2 Saturation 99 ABG Base Excess 6.3 H Doni Test Acceptable Vent Rate Tidal Volume 18/8 Sodium Potassium Chloride Carbon Dioxide Anion Gap BUN Creatinine Estimated Creat Clear Estimated GFR Est GFR ( Amer) Glucose POC Glucose 111 H 127 H Calcium Total Bilirubin Direct Bilirubin Indirect Bilirubin AST ALT Alkaline Phosphatase Total Protein Albumin 05/06/18 05/06/18 18:30 17:11 WBC RBC Hgb Hct MCV MCH MCHC RDW Plt Count MPV Neut % (Auto) Lymph % (Auto) [place] % (Auto) Eos % (Auto) Baso % (Auto) Neut # (Auto) Lymph # (Auto) [place] # (Auto) Eos # (Auto) Baso # (Auto) Specimen Source Right radial Left radial O2 % 100 100 ABG pH 7.43 7.40 ABG pCO2 48.8 H 49.7 H ABG pO2 61.7 L 44.4 L ABG HCO3 31.3 H 30.3 H ABG Total CO2 32.8 H 31.8 H ABG O2 Saturation 91 79 L* ABG Base Excess 6.9 H 5.6 H Doni Test Acceptable Acceptable Vent Rate 16 Tidal Volume Bipap 16/8 Sodium Potassium Chloride Carbon Dioxide Anion Gap BUN Creatinine Estimated Creat Clear Estimated GFR Est GFR ( Amer) Glucose POC Glucose Calcium Total Bilirubin Direct Bilirubin Indirect Bilirubin AST ALT Alkaline Phosphatase Total Protein Albumin Preliminary micro results at discharge 05/06/18 07:00 Sputum Culture - Preliminary Sputum - Expectorated Sputum - Additional Comments rounded with ana all orders per ana DS: Diagnosis - Discharge Diagnosis (1) Hypoxia Status: Acute (2) CAP (community acquired pneumonia) Status: Acute (3) ARDS (adult respiratory distress syndrome) Status: Acute (4) Yeast detected Status: Acute (5) Respiratory failure Status: Acute (6) Airway intubation performed without difficulty Status: Acute (7) Encounter for intubation Status: Acute Discharge Plan - Patient Discharge Instructions ACTIVITY: Continue current activity DIET: continue same diet Patient Instructions: Kidney Failure, High Triglycerides, DI for Pneumonia -- Adult, DI for Colitis - Follow up Plan Follow up with: Thor Nicholas MD [Emergency Provider] - Disposition: Xfer Short-Term Hosp Home Medications: Home Medications Medication Instructions Recorded Confirmed Type Atorvastatin Calcium [Atorvastatin 10 mg PO HS 05/03/18 05/03/18 History 10mg Tab] Benztropine Mesylate 0.5 mg PO BID 05/03/18 05/03/18 History Famotidine [Pepcid 20mg Tablet] 20 mg PO BID 05/03/18 05/04/18 History Fluoxetine HCl 40 mg PO DAILY 05/03/18 05/03/18 History Gabapentin 600 mg PO TID 05/03/18 05/03/18 History Hydrocodone/Acetaminophen 1 each PO Q4HP PRN 05/03/18 05/03/18 History [Hydrocodon-Acetaminoph 7.5-325] Ibuprofen [Ibuprofen 600mg 600 mg PO NEEDED PRN 05/03/18 05/03/18 History Tablet] LORazepam [Ativan 0.5mg 0.5 mg PO NEEDED PRN 05/03/18 05/03/18 History tablet] Mag Hydrox/Aluminum Hyd/Simeth 200 ml PO TID 05/03/18 05/03/18 History [Wendi-Lanta Liquid] Metoprolol Tartrate [Lopressor 25 mg PO BID 05/03/18 05/03/18 History 25mg tablet] Perphenazine 8 mg PO BID 05/03/18 05/03/18 History risperiDONE [Risperdal 1mg Tablet] 1 mg PO BID 05/03/18 05/03/18 History Divalproex Sodium 500 mg PO BID 05/04/18 05/04/18 History Prescriptions/Medication Reconciliation: New 0.9 % Sodium Chloride [RAD-Saline flush 10mL syringe] 10 ml IV NEEDED PRN syringe PRN Reason: Maintain Iv Site Acetaminophen [Acetaminophen 325mg tab] 650 mg PO Q4HP PRN tablet PRN Reason: As Needed For Fever Or Pain Ipratropium/Albuterol Sulfate [Duoneb 3mL neb] 3 ml IH TIDRT ampul.neb Methylprednisolone Sod Succ/Pf [Methylprednisolone Sod Succinate 40mg Vial] 40 mg IV Q8H vial Morphine Sulfate [Morphine 4mg/mL syringe] 4 mg IV Q4HP PRN syringe PRN Reason: Severe Pain Ondansetron HCl/Pf [Zofran 4mg/2mL vial] 4 mg IV Q8HP PRN vial PRN Reason: Nausea Azithromycin [Zithromax 500mg ADV] 500 mg IV Q24H vial.port Piperacillin/Tazo [Zosyn 4.5gm vial] 4.5 gm IV Q6H vial Vancomycin HCl [Vancomycin 1000mg Vial] 1,750 mg IV Q18H vial Divalproex Sodium [Depakote (Delayed Release) 500mg Tab] 500 mg PO BID tablet Continue Metoprolol Tartrate [Lopressor 25mg tablet] 25 mg PO BID risperiDONE [Risperdal 1mg Tablet] 1 mg PO BID Perphenazine 8 mg PO BID Mag Hydrox/Aluminum Hyd/Simeth [Wendi-Lanta Liquid] 200 ml PO TID LORazepam [Ativan 0.5mg tablet] 0.5 mg PO NEEDED PRN PRN Reason: Agitation Hydrocodone/Acetaminophen [Hydrocodon-Acetaminoph 7.5-325] 1 each PO Q4HP PRN PRN Reason: Mild Pain Gabapentin 600 mg PO TID Fluoxetine HCl 40 mg PO DAILY Famotidine [Pepcid 20mg Tablet] 20 mg PO BID Benztropine Mesylate 0.5 mg PO BID Atorvastatin Calcium [Atorvastatin 10mg Tab] 10 mg PO HS Divalproex Sodium 500 mg PO BID Ibuprofen [Ibuprofen 600mg Tablet] 600 mg PO NEEDED PRN PRN Reason: Mild Pain
[2018-05-07 13:02] LABS: ABG Base Excess 5.1 mmol/L (-2.4-2.3); ABG Oxygen Saturation 98 % (90-100); ABG PCO2 42.5 mmhg (35.0-45.0); ABG PH 7.45 mmol/L (7.35-7.45); ABG PO2 114.3 mmhg (80-100); ABG TCO2 30.3 mmhg (23-27)
[2018-05-07 13:03] LABS: Allen's Test ACCEPTABLE; Oxygen 100 %; PEEP 8; Tidal Volume 550
== END 2018-05-07 14:55 | disposition short-term general hospital (02) | DRG 195 ==
LOC: 2ND 16:56 → ER 16:56 → OBSVTOIN 20:57 → 2ND 20:58
PROVIDERS: ADMIT Emergency Medicine; ATTEND Emergency Medicine
CPT/HCPCS: 36415; 71010; 71020; 71045; 71046; 71260; 74177; 80048; 80053; 80076; 80164; 81001; 82150; 82272; 82550; 82553; 82803; 82962; 83690; 83735; 84484; 85007; 85025; 85651; 86140; 86480; 86738; 87040; 87070; 87205; 93306; 94002; 94640; 94660; 94760; 94761; 96365; 96367; 96375; 99284; G0328; J0330; J0456; J2405; J2543; J2704